=== PATIENT | male | born 1990 | race Caucasian/White ===

== ENCOUNTER 2025-07-11 07:57 | Emergency (ER) | payer OTHER ==
[~2025-07-11] VITALS: Ht 195.6 cm; Wt 99.8 kg
[2025-07-11 08:12] VITALS: BP 105/63
[2025-07-11] MEDS ORDERED: Ketorolac Tromethamine 30mg Vial IM ONE (08:45)
[2025-07-11] MEDS ORDERED: CYCL10 PO (09:44)
[2025-07-11] MEDS ORDERED: METPRE4DP PO (09:44)
[2025-07-11] MEDS ORDERED: IBU800 M1 PO (09:44)
[2025-07-11] MEDS ORDERED: Norco 5-325 Ta1 EACH PO (09:44)
== END 2025-07-11 09:55 | disposition home or self-care (01) ==
LOC: ER 07:57
DX: M54.42 Lumbago with sciatica, left side (principal); Z79.899 Other long term (current) drug therapy; Z59.89 Other problems related to housing and economic circumstances
CPT/HCPCS: 96372; 99284-25; A9270; J1885